=== PATIENT | female | born 1980 | race African-American/Black ===

== ENCOUNTER 2017-06-05 16:01 | Inpatient (IN) | payer MEDICAID ==
[~2017-06-05] VITALS: Ht 162.6 cm; Wt 116.8 kg
[2017-06-19] VITALS (18 sets, daily range): BP systolic 89–116; BP diastolic 47–73; PULSE 64–93; TEMP 97.5–98.2
[2017-06-19] MEDS ORDERED: PRENATAL MVI (06:42)
[2017-06-19] MEDS ORDERED: ZANTAC 7575 MG PO (06:43)
[2017-06-19 06:58] LABS: BASO % 0.2 % (0.0-2.0); EOS # 0.1 (0.0-0.7); EOS % 0.5 % (0-4.0); GRAN % 75.6 % (42.2-75.2); HEMOGLOBIN 13.9 g/dl (12.5-16.0); LYMPH # 1.3 (1.2-3.4); LYMPH % 14.4 % (20.0-51.0); MEAN CELL VOLUME 86 fl (80.0-100.0); MEAN CORPUSCULAR HEMOGLOBIN 29 pg (27.0-31.0); MEAN CORPUSCULAR HGB CONC 33 g/dl (33.0-37.0); MEAN PLATELET VOLUME 11.5 fl (7.4-10.4); MONO # 0.8 (0.1-0.6); MONO % 8.8 % (1.7-9.3); PLATELET COUNT 168 K/mm3 (130-400); RED BLOOD COUNT 4.87 M/mm3 (4.10-5.30); WHITE BLOOD COUNT 9.2 K/mm3 (4.8-10.8)
[2017-06-20 02:30] VITALS: BP 110/66; PULSE 79; TEMP 97.5
[2017-06-20 07:15] LABS: BASO % 0.2 % (0.0-2.0); EOS # 0.1 (0.0-0.7); EOS % 0.5 % (0-4.0); GRAN % 84.6 % (42.2-75.2); HEMATOCRIT 43.4 % (37.0-47.0); HEMOGLOBIN 14.2 g/dl (12.5-16.0); LYMPH # 0.9 (1.2-3.4); LYMPH % 7.2 % (20.0-51.0); MEAN CELL VOLUME 87 fl (80.0-100.0); MEAN CORPUSCULAR HEMOGLOBIN 28 pg (27.0-31.0); MEAN CORPUSCULAR HGB CONC 33 g/dl (33.0-37.0); MEAN PLATELET VOLUME 11.1 fl (7.4-10.4); MONO # 0.9 (0.1-0.6); PLATELET COUNT 152 K/mm3 (130-400); WHITE BLOOD COUNT 13.1 K/mm3 (4.8-10.8)
[2017-06-20 08:30] VITALS: BP 98/79; PULSE 100; TEMP 97.7
[2017-06-20 16:30] VITALS: BP 123/52; PULSE 86; TEMP 97.4
[2017-06-20 20:45] VITALS: BP 112/67; PULSE 98; TEMP 98
[2017-06-21 08:15] VITALS: BP 118/61; PULSE 88; TEMP 98.5
[2017-06-21] MEDS ORDERED: IBU600 MG PO (11:01)
[2017-06-21] MEDS ORDERED: PERCOCET 325 MG1 TA2 PO (11:01)
[2017-06-21 17:30] VITALS: BP 115/70; PULSE 91; TEMP 98.4
[2017-06-22 09:20] VITALS: BP 105/73; PULSE 95; TEMP 98.4
== END 2017-06-22 11:30 | disposition home or self-care (01) | DRG 766 ==
LOC: OB 06-19 05:31 → EDSTATUS 06-19 08:45 → OB 06-19 08:47 → LDRO 06-19 16:00 → OB 06-22 11:30
PROVIDERS: Obstetrics & Gynecology
PROC: 10D00Z1 Extraction of Products of Conception, Low, Open Approach (ICD-10-PCS; principal; 2017-06-19)
DX: O34.29 Maternal care due to uterine scar from other previous surgery (principal); N85.8 Other specified noninflammatory disorders of uterus; O99.824 Streptococcus B carrier state complicating childbirth; O34.13 Maternal care for benign tumor of corpus uteri, third trimester; D25.9 Leiomyoma of uterus, unspecified; O99.89 Other specified diseases and conditions complicating pregnancy, childbirth and the puerperium; N73.6 Female pelvic peritoneal adhesions (postinfective); Z3A.37 37 weeks gestation of pregnancy; Z37.0 Single live birth
CPT/HCPCS: J0690; J1885; J2270; J2370; J2405; J2590; J2704; J7120